=== PATIENT | male | born 1945 | race Caucasian/White ===

== ENCOUNTER 2018-08-16 12:52 | Emergency (ER) | payer MEDICARE, BC ==
--- NOTE | 2018-08-16 14:09 | EDM.PDOC ---
Scribed by Corina Watson 08/16/18 1336 for Regla Almonte NP ED HPI GENERAL MEDICAL PROBLEM - General Chief Complaint: ENT Problem Stated Complaint: TAKE OUT NOSE BLEED PLUG [id number] Time Seen by Provider: 08/16/18 13:20 Source of Information: Reports: Patient, RN, RN Notes Reviewed History Limitations: Reports: No Limitations - History of Present Illness INITIAL COMMENTS - FREE TEXT/NARRATIVE: Patient presents to ER to have rhino-rocket taken out. It was placed on Friday in [place]. He is not on blood thinners. No other complaint today. Patient was not prescribed antibiotics when rhino-rocket was placed. Location: Reports: Other (nose) Severity: Mild Improves with: Reports: None Worsens with: Reports: None Associated Symptoms: Reports: No Other Symptoms - Related Data Allergies Allergy/AdvReac Type Severity Reaction Status Date / Time Sulfa (Sulfonamide Allergy Blisters Verified 08/16/18 13:05 Antibiotics) Home Meds: Home Meds Levothyroxine [Synthroid] 50 mcg PO DAILY 08/16/18 [History] Metoprolol Succinate 100 mg PO DAILY 08/16/18 [History] Rosuvastatin Calcium 5 mg PO DAILY 08/16/18 [History] hydroCHLOROthiazide [Hydrochlorothiazide] 12.5 mg PO DAILY 08/16/18 [History] Past Medical History HEENT History: Reports: None, Impaired Vision Cardiovascular History: Reports: Hypertension Respiratory History: Reports: None, Sleep Apnea Other Respiratory History: uses CPap machine Gastrointestinal History: Reports: None Genitourinary History: Reports: None Musculoskeletal History: Reports: Arthritis, Osteoarthritis Neurological History: Reports: None Psychiatric History: Reports: None Endocrine/Metabolic History: Reports: Hypoparathyroidism Hematologic History: Reports: None Immunologic History: Reports: None Oncologic (Cancer) History: Reports: None Dermatologic History: Reports: None - Infectious Disease History Infectious Disease History: Reports: Chicken Pox, Measles, Mumps - Past Surgical History Head Surgeries/Procedures: Reports: None HEENT Surgical History: Reports: Cataract Surgery GI Surgical History: Reports: Cholecystectomy Social & Family History - Tobacco Use Smoking Status *Q: Never Smoker Second Hand Smoke Exposure: No - Caffeine Use Caffeine Use: Reports: Coffee, Soda, Tea - Recreational Drug Use Recreational Drug Use: No ED ROS ENT - Review of Systems Review Of Systems: ROS reveals no pertinent complaints other than HPI. ED EXAM, ENT - Physical Exam Exam: See Below Exam Limited By: No Limitations General Appearance: Alert, WD/WN, No Apparent Distress Eye Exam: Bilateral Eye: EOMI, Normal Inspection, PERRL Ears: Normal External Exam, Normal Canal, Hearing Grossly Normal, Normal TMs Nose: Other (Right nare--rhino-rocket.) Mouth/Throat: Normal Inspection, Normal Gums, Normal Lips, Normal Oropharynx, Normal Teeth Head: Atraumatic, Normocephalic Neck: Normal Inspection, Supple, Non-Tender, Full Range of Motion Respiratory/Chest: No Respiratory Distress, Lungs Clear, Normal Breath Sounds, No Accessory Muscle Use, Chest Non-Tender Cardiovascular: Normal Peripheral Pulses, Regular Rate, Rhythm, No Edema, No Gallop, No JVD, No Murmur, No Rub GI/Abdominal: Normal Bowel Sounds, Soft, Non-Tender, No Organomegaly, No Distention, No Abnormal Bruit, No Mass (Male) Exam: Deferred Rectal (Males) Exam: Deferred Back: Normal Inspection, Full Range of Motion Extremities: Normal Inspection, Normal Range of Motion, Non-Tender, No Pedal Edema, Normal Capillary Refill Neurological: Alert, Oriented, CN II-XII Intact, Normal Cognition, Normal Gait, Normal Reflexes, No Motor/Sensory Deficits Psychiatric: Normal Affect, Normal Mood Skin: Warm, Dry, Intact, Normal Color, No Rash Lymphatic: No Adenopathy ED ENT PROCEDURES - Additional/Other Procedure(s) Other (Free Text) Procedure(s): Rhino rocket in right nare decompressed with 10cc syringe, gently pulled out. Patient tolerated well. No further problems. Course - Vital Signs Last Recorded V/S: Last Vital Signs Temp 97.8 F 08/16/18 12:59 Pulse 88 08/16/18 12:59 Resp 16 08/16/18 12:59 BP 158/61 H 08/16/18 12:59 Pulse Ox 98 08/16/18 12:59 Departure - Departure Time of Disposition: 13:35 Disposition: Home, Self-Care 01 Condition: Good Clinical Impression: Epistaxis Sinusitis Qualifiers: Sinusitis location: unspecified location Chronicity: acute Recurrence: non- recurrent Qualified Code(s): J01.90 - Acute sinusitis, unspecified - Discharge Information *PRESCRIPTION DRUG MONITORING PROGRAM REVIEWED*: No *COPY OF PRESCRIPTION DRUG MONITORING REPORT IN PATIENT WISAM: No Instructions: Sinusitis, Adult, [id number], Nosebleed, [id number] Referrals: Ammy Estevez NP [Primary Care Provider] - Forms: ED Department Discharge Additional Instructions: RX: Azithromycin Follow up with your primary care facility I have read and agree with the documentation that has been completed regarding this visit. By signing this record, I attest that the documentation was completed in my physical presence and is an accurate record of the encounter.
== END 2018-08-16 13:45 | disposition home or self-care (01) ==
LOC: DL.ED 12:52
DX: R04.0 Epistaxis (principal); J01.90 Acute sinusitis, unspecified
CPT/HCPCS: 99282

== ENCOUNTER 2019-02-19 19:13 | Emergency (ER) | payer MEDICARE, BC ==
--- NOTE | 2019-02-19 19:58 | EDM.PDOC ---
ED HPI GENERAL MEDICAL PROBLEM - General Chief Complaint: Wound Recheck Stated Complaint: OPEN BLEEDING INCISION Time Seen by Provider: 02/19/19 19:58 Source of Information: Reports: Patient, Family, RN, RN Notes Reviewed History Limitations: Reports: No Limitations - History of Present Illness INITIAL COMMENTS - FREE TEXT/NARRATIVE: patient presents to ER accompanied by his , with complaint of bleeding from his right knee incision site.Patient states he had right knee replacement on February 15, has been seeing physical therapy. Patient states today he noticed small amount of blood under the dressing, which developed into more blood and pooling under the dressing. Patient's called [facility] in [place], who told her to change the dressing. Patient's did not feel comfortable changing the dressing on her own. They did have one dressing at home which was sent home with them after the surgery. Patient denies any other problems at this time. Onset: Today Right Knee Pain Score (Numeric/FACES): 5 - Related Data Allergies Allergy/AdvReac Type Severity Reaction Status Date / Time Sulfa (Sulfonamide Allergy Blisters Verified 02/19/19 19:44 Antibiotics) Home Meds: Home Meds Levothyroxine [Synthroid] 50 mcg PO DAILY 08/16/18 [History] Metoprolol Succinate 100 mg PO DAILY 08/16/18 [History] Rosuvastatin Calcium 5 mg PO DAILY 08/16/18 [History] hydroCHLOROthiazide [Hydrochlorothiazide] 12.5 mg PO DAILY 08/16/18 [History] Past Medical History HEENT History: Reports: None, Impaired Vision Cardiovascular History: Reports: Hypertension Respiratory History: Reports: None, Sleep Apnea Other Respiratory History: uses CPap machine Gastrointestinal History: Reports: None Genitourinary History: Reports: None Musculoskeletal History: Reports: Arthritis, Osteoarthritis Neurological History: Reports: None Psychiatric History: Reports: None Endocrine/Metabolic History: Reports: Hypoparathyroidism Hematologic History: Reports: None Immunologic History: Reports: None Oncologic (Cancer) History: Reports: None Dermatologic History: Reports: None - Infectious Disease History Infectious Disease History: Reports: Chicken Pox, Measles, Mumps - Past Surgical History Head Surgeries/Procedures: Reports: None HEENT Surgical History: Reports: Cataract Surgery GI Surgical History: Reports: Cholecystectomy Social & Family History - Caffeine Use Caffeine Use: Reports: Coffee, Soda, Tea ED ROS GENERAL - Review of Systems Review Of Systems: ROS reveals no pertinent complaints other than HPI. ED EXAM, SKIN/RASH Exam: See Below Exam Limited By: No Limitations General Appearance: Alert, WD/WN, No Apparent Distress Eye Exam: Bilateral Eye: EOMI, Normal Inspection Ears: Normal External Exam, Hearing Grossly Normal Nose: Normal Inspection Throat/Mouth: Normal Inspection, Normal Voice, No Airway Compromise, Perioral Cyanosis Head: Atraumatic Neck: Normal Inspection, Supple, Non-Tender, Full Range of Motion Respiratory/Chest: No Respiratory Distress, Lungs Clear, Normal Breath Sounds, No Accessory Muscle Use, Chest Non-Tender Cardiovascular: Normal Peripheral Pulses, Regular Rate, Rhythm, No Edema, No Gallop, No JVD, No Murmur, No Rub Peripheral Pulses: 2+: Radial (L), Radial (R), Dorsalis Pedis (L), Dorsalis Pedis (R) GI/Abdominal: Normal Bowel Sounds, Soft, Non-Tender (Male) Exam: Deferred Rectal (Males) Exam: Deferred Back Exam: Normal Inspection, Decreased Range of Motion Extremities: Joint Swelling (ight knee), Leg Pain (right knee), Limited Range of Motion (right knee), Increased Warmth (right knee), Redness (right knee), Other (ecchymosis to right knee) Neurological: Alert, Oriented, CN II-XII Intact, Normal Cognition, Normal Gait, Normal Reflexes, No Motor/Sensory Deficits Psychiatric: Normal Affect, Normal Mood Skin: Warm, Dry, Wound/Incision (incision intact with approximately 1 cm area with a very small blood clot.) Location, Skin: Lower Extremity, Right Characteristics: Linear Associated features: Warmth, Tenderness, Swelling, Weeping (blood) Lymphatic: No Adenopathy Course - Vital Signs Last Recorded V/S: Last Vital Signs Temp 99.3 F 02/19/19 19:47 Pulse 94 02/19/19 19:47 Resp 18 02/19/19 19:47 BP 145/67 H 02/19/19 19:47 Pulse Ox 97 02/19/19 19:47 - Re-Assessments/Exams Free Text/Narrative Re-Assessment/Exam: 02/19/19 20:52 present dressing was removed. The area was cleansed with sterile water and sterile gauze. There is no active bleeding noted from the incisional site at this time. Very small blood clot to a 1 cm area at the distal portion of the incision. New sterile dressing was applied. Patient tolerated well. Jose Antonio wrap was replaced. Departure - Departure Time of Disposition: 20:35 Disposition: Home, Self-Care 01 Condition: Fair Clinical Impression: Post-op bleeding Qualifiers: Surgical complication system/body Area: musculoskeletal system Procedure type: musculoskeletal Qualified Code(s): M96.830 - Postprocedural hemorrhage of a musculoskeletal structure following a musculoskeletal system procedure - Discharge Information *PRESCRIPTION DRUG MONITORING PROGRAM REVIEWED*: No *COPY OF PRESCRIPTION DRUG MONITORING REPORT IN PATIENT WISAM: No Instructions: Wound Dehiscence, [id number] Forms: ED Department Discharge Additional Instructions: Follow up with your surgeon Return to the ER with any further problems Rest
== END 2019-02-19 20:48 | disposition home or self-care (01) ==
LOC: DL.ED 19:13
DX: M96.830 Postprocedural hemorrhage of a musculoskeletal structure following a musculoskeletal system procedure (principal); I10 Essential (primary) hypertension; E20.9 Hypoparathyroidism, unspecified; Z79.890 Hormone replacement therapy; Z79.899 Other long term (current) drug therapy; Z88.2 Allergy status to sulfonamides
CPT/HCPCS: 99282

== ENCOUNTER 2025-01-01 12:49 | Emergency (ER) | payer MEDICARE, BC ==
[2025-01-01 13:31] LABS: BASOPHILS PERCENT AUTO 0.6 % (0.0-1.0); EOSINOPHILS PERCENT AUTO 0.1 % (1.0-3.0); LYMPHOCYTES PERCENT AUTO 5.1 % (20.5-50.1); MONOCYTES PERCENT AUTO 7.9 % (2-8); NEUTROPHILS PERCENT AUTO 86.3 % (42.2-75.2); PLATELET COUNT,PLT 251 10^3/uL (150-450); RED BLOOD CELL COUNT 4.84 10^6/uL (4.6-6.2); WHITE BLOOD CELL COUNT,WBC 15.1 10^3/uL (5.0-10.0)
[2025-01-01] MEDS: Lactated Ringers 1,000 ML IV ONE (13:37)
[2025-01-01 13:49] LABS: INR 3.3 (0.9-1.2)
[2025-01-01 13:56] LABS: LACTIC ACID 2.0 mmol/L (0.4-2.0)
[2025-01-01 13:57] LABS: A/G RATIO 0.62; ALANINE AMINOTRANSFERASE,ALT 19.0 U/L (16-63); ASPARTATE AMNIOTRANSFERASE,AST 19.0 U/L (15-37); BILIRUBIN TOTAL 1.9 mg/dL (0.2-1.0); BLOOD UREA NITROGEN,BUN 15.0 mg/dL (7-18); CARBON DIOXIDE,CO2 26.0 mmol/L (21-32); CHLORIDE,CL 104.0 mmol/L (98-107); CREATININE 1.32 mg/dL (0.70-1.30); EST CRCL DRUG DOSING (CG) 59.6 mL/min; ESTIMATED GFR 55.0 mL/min (>=60); GLUCOSE RANDOM 178.0 mg/dL (70-99); POTASSIUM,K 4.2 mmol/L (3.5-5.1); PROTEIN TOTAL,TP 7.3 g/dL (6.4-8.2); SODIUM,NA 140.0 mmol/L (136-145)
[2025-01-01] MEDS: Diltiazem 25 MG/5 ML SDV IVPUSH ONE (14:24)
== END 2025-01-01 15:40 | disposition home or self-care (01) ==
LOC: DL.ED 12:49
DX: I48.91 Unspecified atrial fibrillation (principal); M25.511 Pain in right shoulder; G30.9 Alzheimer's disease, unspecified; I10 Essential (primary) hypertension; Z90.49 Acquired absence of other specified parts of digestive tract; Z88.2 Allergy status to sulfonamides; Z79.890 Hormone replacement therapy; Z79.899 Other long term (current) drug therapy
CPT/HCPCS: 36415; 71045; 80053; 83605; 83735; 84484; 85025; 85610; 93005; 93010; 96361; 96374; 99284; 99285; J1163; J7120